=== PATIENT | female | born 1995 | race Caucasian/White ===

== ENCOUNTER 2016-07-11 00:49 | Emergency (ER) | payer SELFPAY ==
[2016-07-11 00:51] VITALS: BP 160/108; PULSE 122; RESP 22; TEMP 98; O2SAT 98
[2016-07-11 01:04] VITALS: BP 119/88; PULSE 105; RESP 18; TEMP 98.4; O2SAT 96
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
[2016-07-11 04:35] LABS: AUTOMATED NEUTROPHIL # 3.1 TH/MM3 (1.8-7.7); BASOPHIL % 1.1 % (0.0-2.0); EOSINOPHIL # 0.2 TH/MM3 (0-0.4); EOSINOPHIL % 4.9 % (0.0-4.0); HEMATOCRIT 40.5 % (35.0-46.0); HEMO FLAGS DIFF FINAL; LYMPH % 19.9 % (9.0-44.0); LYMPHOCYTE # 0.9 TH/MM3 (1.0-4.8); MEAN CELL VOLUME 92.9 FL (80.0-100.0); MEAN CORPUSCULAR HEMOGLOBIN 32.5 PG (27.0-34.0); MONO % 6.3 % (0.0-8.0); NEUT % 67.8 % (16.0-70.0); PLATELET COUNT 213 TH/MM3 (150-450); RED BLOOD COUNT 4.36 MIL/MM3 (4.00-5.30); RED CELL DISTRIBUTION WIDTH 12.3 % (11.6-17.2); WHITE BLOOD COUNT 4.6 TH/MM3 (4.0-11.0)
[2016-07-11] MEDS ORDERED: IOHEXOL 350 MG/ML 10 ML VIAL (for RAD DIAG) IV ONE (04:51)
[2016-07-11 05:01] LABS: BICARBONATE 20.6 MEQ/L (21.0-32.0); POTASSIUM 3.5 MEQ/L (3.5-5.1)
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
[2016-07-11] MEDS ORDERED: IBUP-232 PO (05:37)
[2016-07-11] MEDS ORDERED: TRAM50TA PO (05:37)
[2016-07-11] MEDS ORDERED: TETANUS/DIPHTHERIA TOXOID ADULT 0.5 ML VIAL IM ONE (05:45)
[2016-07-11 06:09] VITALS: BP 113/75; PULSE 106; RESP 18; TEMP 98.4; O2SAT 99
[2016-07-11] MEDS ORDERED: traMADol HCL 50 MG TAB PO ONE (06:15)
[2016-07-11] MEDS ORDERED: ONDANSETRON ODT 4 MG TAB PO ONE (06:45)
== END 2016-07-11 07:10 | disposition home or self-care (01) ==
LOC: NEPE 00:49
DX: S09.90XA Unspecified injury of head, initial encounter (principal); M79.641 Pain in right hand; Z72.0 Tobacco use; Z23 Encounter for immunization
CPT/HCPCS: 70450; 71010; 73130; 74177; 80048; 84703; 85025; 90471; 90714; 99284; L0150; Q9967